=== PATIENT | male | born 1975 | race Two or more races ===

== ENCOUNTER 2021-12-18 09:07 | Emergency (ER) | payer MEDICAID ==
[~2021-12-18] VITALS: Ht 175.3 cm; Wt 86.2 kg
[2021-12-18] MEDS ORDERED: IBUP800T27 PO (11:46)
== END 2021-12-18 11:52 | disposition home or self-care (01) ==
LOC: ER 09:07
DX: M23.92 Unspecified internal derangement of left knee (principal); Z79.1 Long term (current) use of non-steroidal anti-inflammatories (NSAID)
CPT/HCPCS: 93971

== ENCOUNTER 2024-04-06 03:09 | Emergency (ER) | payer MEDICAID ==
[~2024-04-06] VITALS: Ht 172.7 cm; Wt 81.0 kg
[~2024-04-06 03:09] MED LIST: IBUP-1456 PO
[2024-04-06] MEDS: LIDOCAINE 1% HCL (LOCAL ANESTH.) INJ 20ML MDV ID ONE (04:00)
[2024-04-06 04:41] VITALS: BP 119/78; PULSE 68; RESP 18; TEMP 98; O2SAT 95
[2024-04-06] MEDS: HYDROcodone-ACET 5/325MG TAB PO ONE (05:40)
[2024-04-06] MEDS: TETANUS-DIPTH-ACEL PERTUSSIS 0.5ML SYR Tdap IM ONE (05:41)
[2024-04-06] MEDS ORDERED: AUG875T PO (05:48)
== END 2024-04-06 05:59 | disposition home or self-care (01) ==
LOC: ER 03:09 → EDBD 03:09 → ER 05:59
DX: S81.012A Laceration without foreign body, left knee, initial encounter (principal); W06.XXXA Fall from bed, initial encounter; Y93.89 Activity, other specified; Y92.89 Other specified places as the place of occurrence of the external cause; Y99.8 Other external cause status
CPT/HCPCS: 12002; 73562; 90471; 90715